=== PATIENT | male | born 1970 | race Caucasian/White ===

== ENCOUNTER 2016-12-28 16:17 | Emergency (ER) | payer MEDICAID ==
[~2016-12-28] VITALS: Ht 170.2 cm; Wt 70.0 kg
[~2016-12-28 16:17] MED LIST: ALBU18HF2 IH; BISA10SU22 RC; BRIM15DR8 OP; CALC260T6 PO; CALCIUM CARBONATE; CLON1TAB4 PO; DIVA500T PO; ERGO400C PO; FERR325C; HALO2TAB PO; LACO200T2; LACT10SO PO; LORA0.5T2; NAPR-681 GT; OXCA300T31 PO; OXYB5TAB11; PANT40TA4 PO; QUET200T; QUET200T PO; RANI-84; TAMAZEPAM; XALAO EACHEYE
[2016-12-28 19:57] VITALS: BP 109/78
[2016-12-28] MEDS ORDERED: LORAZEPAM 2MG/ML CPJ IM ONE (22:45)
== END 2016-12-29 00:10 | disposition home or self-care (01) ==
LOC: ER 21:18
DX: S00.83XA Contusion of other part of head, initial encounter (principal); J45.909 Unspecified asthma, uncomplicated; Z79.899 Other long term (current) drug therapy; X58.XXXA Exposure to other specified factors, initial encounter; Y93.89 Activity, other specified; Y99.8 Other external cause status; Y92.89 Other specified places as the place of occurrence of the external cause
CPT/HCPCS: 96372; 99283; J2060; Z7610

== ENCOUNTER 2017-05-23 08:17 | Emergency (ER) | payer MEDICAID ==
[~2017-05-23] VITALS: Ht 175.3 cm; Wt 68.0 kg
[~2017-05-23 08:17] MED LIST changes: -RANI-84; +RANI150T12
[2017-05-23] MEDS ORDERED: QUETIAPINE FUMARATE 100MG TABLET PO STA (10:01)
[2017-05-23] MEDS ORDERED: BACITRACIN ZINC OINT UDPKT TOP ONE (10:15)
[2017-05-23] MEDS ORDERED: LORAZEPAM 1MG TABLET PO ONE (10:15)
[2017-05-23] MEDS ORDERED: ZIPRASIDONE HCL 60MG CAPSULE PO ONE (10:15)
[2017-05-23] MEDS ORDERED: HALOPERIDOL 2MG TABLET PO ONE (10:15)
[2017-05-23] MEDS ORDERED: LIDOCAINE/EPINEPHR/TETRACAINE 3ML TP ONE (10:15)
[2017-05-23] MEDS ORDERED: LIDOCAINE HCL 1%/EPI 1:200,000 30 ML VIAL MC ONE (10:15)
[2017-05-23] MEDS ORDERED: KETAMINE HCL 50 MG/ML 10ML IM ONE ×2 (12:00)
[2017-05-23 14:39] VITALS: BP 115/74
== END 2017-05-23 14:58 | disposition home or self-care (01) ==
LOC: ER 11:21
DX: S01.112A Laceration without foreign body of left eyelid and periocular area, initial encounter (principal); S09.90XA Unspecified injury of head, initial encounter; F84.0 Autistic disorder; J45.909 Unspecified asthma, uncomplicated; W18.02XA Striking against glass with subsequent fall, initial encounter; Y93.89 Activity, other specified; Y92.89 Other specified places as the place of occurrence of the external cause
CPT/HCPCS: 12011; 70450; 72125; 99152; 99285; J3490; J7030; X7700; Z7610

== ENCOUNTER 2018-02-09 16:10 | Emergency (ER) | payer MEDICAID ==
[~2018-02-09] VITALS: Ht 167.6 cm; Wt 56.0 kg
[~2018-02-09 16:10] MED LIST changes: -CALCIUM CARBONATE; +CARB300C6 PO; -CLON1TAB4 PO; -DIVA500T PO; +LACO100T2 PO; -LACO200T2; +LACO200T2 PO; -LORA0.5T2; -OXYB5TAB11; -PANT40TA4 PO; -QUET200T; -RANI150T12; +RANI150T43; -TAMAZEPAM; +TIMO15DR12 EACHEYE; +TOPI50CA6 PO; +TRAZ-132 PO
[2018-02-10] MEDS ORDERED: BACITRACIN ZINC OINT UDPKT TOP ONE
[2018-02-10] MEDS ORDERED: LIDOCAINE HCL/PF 1% 10 MG/ML 5ML VIAL IJ SCH (00:15)
[2018-02-10] MEDS ORDERED: LIDOCAINE HCL 1% 20ML VIAL (Pyxis) INJ MC ONE (00:15)
[2018-02-10 00:40] VITALS: BP 138/68
== END 2018-02-10 00:41 | disposition home or self-care (01) ==
LOC: ER 16:10
DX: S01.01XA Laceration without foreign body of scalp, initial encounter (principal); K21.9 Gastro-esophageal reflux disease without esophagitis; R56.9 Unspecified convulsions; W18.2XXA Fall in (into) shower or empty bathtub, initial encounter; Y93.F1 Activity, caregiving, bathing; Y92.89 Other specified places as the place of occurrence of the external cause
CPT/HCPCS: 12001; 99283; J3490; Z7610

== ENCOUNTER 2018-08-23 10:50 | Emergency (ER) | payer MEDICAID ==
[~2018-08-23] VITALS: Ht 170.2 cm; Wt 55.0 kg
[~2018-08-23 10:50] MED LIST changes: -TRAZ-132 PO; +TRAZ-213 PO
[2018-08-23 11:03] VITALS: BP 103/75
[2018-08-23] MEDS ORDERED: LIDOCAINE HCL/PF 1% 10 MG/ML 30ML VIAL INFIL ONE (11:30)
[2018-08-23] MEDS ORDERED: BACITRACIN ZINC OINT UDPKT TOP ONE (11:30)
[2018-08-23] MEDS ORDERED: LIDOCAINE HCL/PF 1% 10 MG/ML 5ML VIAL IJ ONE (12:15)
== END 2018-08-23 15:22 | disposition home or self-care (01) ==
LOC: ER 10:50
DX: S01.111A Laceration without foreign body of right eyelid and periocular area, initial encounter (principal); K21.9 Gastro-esophageal reflux disease without esophagitis; W18.39XA Other fall on same level, initial encounter; Y93.89 Activity, other specified; Y92.89 Other specified places as the place of occurrence of the external cause; Y99.8 Other external cause status; Z79.899 Other long term (current) drug therapy
CPT/HCPCS: 12013; 70450; 99284; J3490

== ENCOUNTER 2019-04-01 04:12 | Emergency (ER) | payer MEDICAID ==
[~2019-04-01] VITALS: Ht 170.2 cm; Wt 61.0 kg
[~2019-04-01 04:12] MED LIST changes: +RANI-655; -RANI150T43
[2019-04-01] MEDS ORDERED: LORAZEPAM 2MG/ML CPJ IM ONE ×2 (06:15→06:45)
[2019-04-01] MEDS ORDERED: TETANUS, DIPHTHERIA, PERTUSSIS VAC/PF 0.5ML (>7YR OLD) IM ONE (06:45)
[2019-04-01] MEDS ORDERED: LIDOCAINE 1%/EPI 1:100,000 10 ML VIAL IJ ONE (06:45)
[2019-04-01] MEDS ORDERED: LIDOCAINE HCL/EPINEPHRINE 1%-EPI 1:100,000 20 ML VIAL INFIL ONE (08:26)
[2019-04-01 12:24] VITALS: BP 123/81
== END 2019-04-01 12:25 | disposition home or self-care (01) ==
LOC: ER 04:12
DX: S01.01XA Laceration without foreign body of scalp, initial encounter (principal); I89.1 Lymphangitis; F31.9 Bipolar disorder, unspecified; F79 Unspecified intellectual disabilities; Z93.1 Gastrostomy status; W06.XXXA Fall from bed, initial encounter; Y93.89 Activity, other specified; Y92.013 Bedroom of single-family (private) house as the place of occurrence of the external cause
CPT/HCPCS: 12002; 70450; 90471; 90715; 96372; 99284; J2060; J3490; 96374

== ENCOUNTER 2025-03-21 18:42 | Emergency (ER) | payer SELFPAY ==
[~2025-03-21] VITALS: Ht 175.3 cm; Wt 70.0 kg
[~2025-03-21 18:42] MED LIST changes: -CARB300C6 PO; +CARB300C9 PO; -TOPI50CA6 PO; +TOPI50CA7 PO; -TRAZ-213 PO; +TRAZ-252 PO
[2025-03-21 19:02] VITALS: TEMP 36.9; O2SAT 95
[2025-03-21 19:51] LABS: BASOPHILS % 0.5 % (0.0-2.0); EOSINOPHILS % 0.9 % (0.0-5.0); HEMATOCRIT. 39.6 % (42.0-52.0); HEMOGLOBIN. 13.1 g/dL (14.0-18.0); LYMPHOCYTES % 30.6 % (20.0-50.0); MEAN PLATELET VOLUME 7.8 fl (7.4-10.4); MONOCYTES % 11.1 % (2.0-8.0); NEUTROPHILS % 56.9 % (40.0-76.0); PLATELET 220 x1000/uL (130-400); RED BLOOD CELL COUNT 4.42 mill/uL (4.7-6.1); RED CELL DISTRIBUTION WIDTH 13.2 % (11.6-14.6)
[2025-03-21 20:01] LABS: CREATININE 0.7 mg/dL (0.6-1.3); UREA NITROGEN BLOOD 16 mg/dL (9-23)
[2025-03-21] MEDS: DIATR MEGLU/DIATRIZOATE SOLN 30ML ONE (22:02)
[2025-03-21] MEDS: DIATR MEGLU/DIATRIZOATE SOLN 30ML PO ONE (22:02)
[2025-03-21 22:42] VITALS: BP 119/83; PULSE 80; RESP 15; O2SAT 98
== END 2025-03-21 22:42 | disposition home or self-care (01) ==
LOC: ER 18:42
DX: Z43.1 Encounter for attention to gastrostomy (principal); F31.9 Bipolar disorder, unspecified; K21.9 Gastro-esophageal reflux disease without esophagitis; Z79.899 Other long term (current) drug therapy
CPT/HCPCS: 99284; 80048; 85025; 36415; 74018; Q9963

== ENCOUNTER → 2025-08-27 | Emergency (ER) | payer SELFPAY ==
[~2025-08-27] VITALS: Ht 175.3 cm; Wt 75.0 kg
[2025-08-27 19:04] VITALS: O2SAT 99
[2025-08-27] MEDS: DIATR MEGLU/DIATRIZOATE SOLN 30ML GT ONE (20:45)
[2025-08-27] MEDS: DIATR MEGLU/DIATRIZOATE SOLN 30ML ONE (21:00)
[2025-08-27 21:42] VITALS: BP 124/89; PULSE 78; RESP 18; TEMP 36.7; O2SAT 98
== END ==
LOC: ER 18:50
DX: Z46.59 Encounter for fitting and adjustment of other gastrointestinal appliance and device (principal); K21.9 Gastro-esophageal reflux disease without esophagitis; F31.9 Bipolar disorder, unspecified; Z79.899 Other long term (current) drug therapy
CPT/HCPCS: 99284; 74018; Q9963